=== PATIENT | male | born 1985 | race Caucasian/White ===

== ENCOUNTER 2017-08-06 17:48 | Inpatient (IN) | payer OTHER ==
[~2017-08-06] VITALS: Ht 193 cm; Wt 145.4 kg
[2017-08-06] MEDS ORDERED: normal saline 1000ML IV soln IV ONE (18:05)
[2017-08-06 18:43] LABS: BASOPHILS % (AUTO) 0.3 % (0-1); EOSINOPHILS # (AUTO) 0.2 X10'3 (0-0.9); EOSINOPHILS % (AUTO) 1.3 % (0-6); HEMATOCRIT 39.9 % (42.0-52.0); HEMOGLOBIN 13.4 g/dl (14.0-17.9); LYMPHOCYTES # (AUTO) 1.8 X10'3 (1.1-4.8); LYMPHOCYTES % (AUTO) 15.5 % (21-51); MEAN CORPUSCULAR HGB CONC 33.6 % (33.0-36.5); MEAN CORPUSCULAR VOLUME 83.5 FL (78-98); MEAN PLATELET VOLUME 9.5 FL (7.4-10.4); MONOCYTES # (AUTO) 1.5 X10'3 (0-0.9); MONOCYTES % (AUTO) 12.8 % (2-12); NEUTROPHILS # (AUTO) 7.9 X10'3 (1.8-7.7); NEUTROPHILS % (AUTO) 70.1 % (42-75); PLATELET COUNT 213 X10'3 (140-440); RED BLOOD COUNT 4.77 X10'6 (4.70-6.10); RED CELL DISTRIBUTION WIDTH 13.4 % (11.5-14.5); WHITE BLOOD COUNT 11.3 X10'3 (4.5-11.0)
[2017-08-06 18:57] LABS: ALANINE AMINOTRANSFERASE 30 U/L (12-78); ALBUMIN 3.4 G/DL (3.4-5.0); ALBUMIN/GLOBULIN RATIO 0.8 (1.1-1.5); ALKALINE PHOSPHATASE 72 IU/L (46-116); ANION GAP 7 (8-16); ASPARTATE AMINO TRANSFERASE 15 U/L (10-37); BILIRUBIN,TOTAL 0.4 MG/DL (0.1-1.0); BLOOD UREA NITROGEN 16 MG/DL (7-18); BUN/CREATININE RATIO 15.8 (5.4-32.0); CALCIUM 8.6 MG/DL (8.5-10.1); CHLORIDE 101 MMOL/L (99-107); CREATININE 1.01 MG/DL (0.60-1.10); GLUCOSE 131 MG/DL (70-104); POTASSIUM 3.5 MMOL/L (3.5-5.1); SODIUM 137 MMOL/L (135-145); TOTAL PROTEIN 7.6 G/DL (6.4-8.2); eGFR 85 ML/MIN
[2017-08-06] MEDS ORDERED: vancomycin inj 1,000 MG in normal saline 250ml IV soln 250 ML IV STA (19:06)
[2017-08-06] MEDS ORDERED: vancomycin/NS 1 GM ADD-VANTAGE 250 ML IV STA (19:10)
[2017-08-06] MEDS ORDERED: iohexol 300mg/ml 100ml inj. ONE (19:11)
[2017-08-06] MEDS ORDERED: acetaminophen 325mg tablet PO ONE (19:50)
[2017-08-06] MEDS ORDERED: CEPH-571 PO (20:21)
[2017-08-06] MEDS ORDERED: DOXY100C43 PO (20:21)
[2017-08-06] MEDS ORDERED: HYDR-565 PO (20:22)
[2017-08-06] MEDS ORDERED: CefTRIAXone 2gm/NS 100ml IVPB 100 ML IV ONE (21:05)
[2017-08-06] MEDS ORDERED: mag hydrox/Alum hydrox/simeth 30ml oral suspension PO PRN (22:40)
[2017-08-06] MEDS ORDERED: ondansetron/PF 4mg/2ml inj IV PRN (22:40)
[2017-08-06] MEDS ORDERED: acetaminophen 325mg tablet PO PRN (22:40)
[2017-08-06] MEDS ORDERED: magnesium hydroxide 30ml (MOM) UD suspension PO PRN (22:40)
[2017-08-06] MEDS: vancomycin/NS 1 GM ADD-VANTAGE 250 ML IV ONE (23:15)
[2017-08-06 23:30] VITALS: BP 126/74
[2017-08-06] MEDS: normal saline 1000ml 1,000 ML IV SCH (23:30)
[2017-08-07] MEDS: acetaminophen 325mg tablet PO PRN ×2 (00:43→16:45)
[2017-08-07] MEDS: vancomycin/NS 1 GM ADD-VANTAGE 250 ML IV ONE (01:05)
[2017-08-07 06:00] VITALS: BP 134/77
[2017-08-07 06:04] LABS: BASOPHILS % (AUTO) 0.2 % (0-1); EOSINOPHILS # (AUTO) 0.2 X10'3 (0-0.9); EOSINOPHILS % (AUTO) 1.5 % (0-6); HEMATOCRIT 35.3 % (42.0-52.0); LYMPHOCYTES # (AUTO) 2.3 X10'3 (1.1-4.8); LYMPHOCYTES % (AUTO) 21.4 % (21-51); MEAN CORPUSCULAR HEMOGLOBIN 28.1 PG (27.0-31.0); MEAN CORPUSCULAR VOLUME 82.8 FL (78-98); MEAN PLATELET VOLUME 9.4 FL (7.4-10.4); MONOCYTES # (AUTO) 1.5 X10'3 (0-0.9); NEUTROPHILS # (AUTO) 6.8 X10'3 (1.8-7.7); NEUTROPHILS % (AUTO) 62.9 % (42-75); PLATELET COUNT 195 X10'3 (140-440); RED BLOOD COUNT 4.26 X10'6 (4.70-6.10); RED CELL DISTRIBUTION WIDTH 13.7 % (11.5-14.5); WHITE BLOOD COUNT 10.9 X10'3 (4.5-11.0)
[2017-08-07 06:24] LABS: ALBUMIN 2.7 G/DL (3.4-5.0); ANION GAP 6 (8-16); BLOOD UREA NITROGEN 11 MG/DL (7-18); BUN/CREATININE RATIO 12.6 (5.4-32.0); CALCIUM 8.3 MG/DL (8.5-10.1); CHLORIDE 106 MMOL/L (99-107); CREATININE 0.87 MG/DL (0.60-1.10); GLUCOSE 105 MG/DL (70-104); POTASSIUM 3.6 MMOL/L (3.5-5.1); SODIUM 138 MMOL/L (135-145); TOTAL CARBON DIOXIDE 25.8 MMOL/L (24-32); eGFR > 90 ML/MIN
[2017-08-07] MEDS ORDERED: vancomycin inj 1,250 MG in normal saline 250ml IV soln 250 ML IV SCH (08:00)
[2017-08-07] MEDS: normal saline 1000ml 1,000 ML IV SCH ×2 (08:38→18:38)
[2017-08-07 10:00] VITALS: BP 138/87
[2017-08-07] MEDS ORDERED: NO HOME MEDS (10:42)
[2017-08-07] MEDS: HYDROcodone/acetaminophen 10/325mg tab PO PRN (21:00)
[2017-08-07] MEDS: CefTRIAXone 2gm/D5W 50ml ADVTG 100 ML IV SCH (21:35)
[2017-08-07 22:03] VITALS: BP 128/77
[2017-08-07 22:07] VITALS: BP 140/78
[2017-08-08] MEDS: normal saline 1000ml 1,000 ML IV SCH ×2 (00:30→17:45)
[2017-08-08 06:00] VITALS: BP 145/83
[2017-08-08] MEDS: HYDROcodone/acetaminophen 10/325mg tab PO PRN ×4 (08:08→21:58)
[2017-08-08] MEDS: LACTOBACILLUS RHAMNOSUS GG 15 billion unit sprinkle caps PO SCH (08:09)
[2017-08-08 09:23] LABS: BASOPHILS % (AUTO) 0.2 % (0-1); EOSINOPHILS # (AUTO) 0.3 X10'3 (0-0.9); EOSINOPHILS % (AUTO) 2.2 % (0-6); HEMATOCRIT 36.2 % (42.0-52.0); HEMOGLOBIN 12.2 g/dl (14.0-17.9); LYMPHOCYTES # (AUTO) 2.1 X10'3 (1.1-4.8); LYMPHOCYTES % (AUTO) 17.4 % (21-51); MEAN CORPUSCULAR HGB CONC 33.7 % (33.0-36.5); MEAN CORPUSCULAR VOLUME 83.3 FL (78-98); MEAN PLATELET VOLUME 8.6 FL (7.4-10.4); MONOCYTES % (AUTO) 8.3 % (2-12); NEUTROPHILS # (AUTO) 8.5 X10'3 (1.8-7.7); NEUTROPHILS % (AUTO) 71.9 % (42-75); PLATELET COUNT 217 X10'3 (140-440); RED BLOOD COUNT 4.34 X10'6 (4.70-6.10); RED CELL DISTRIBUTION WIDTH 13.3 % (11.5-14.5); WHITE BLOOD COUNT 11.8 X10'3 (4.5-11.0)
[2017-08-08] MEDS ORDERED: VANCOMYCIN LEVEL IV NR (09:30)
[2017-08-08 09:36] LABS: ALANINE AMINOTRANSFERASE 29 U/L (12-78); ALBUMIN 2.8 G/DL (3.4-5.0); ALBUMIN/GLOBULIN RATIO 0.7 (1.1-1.5); ALKALINE PHOSPHATASE 66 IU/L (46-116); ANION GAP 6 (8-16); ASPARTATE AMINO TRANSFERASE 15 U/L (10-37); BILIRUBIN,TOTAL 0.6 MG/DL (0.1-1.0); BLOOD UREA NITROGEN 8 MG/DL (7-18); BUN/CREATININE RATIO 10.3 (5.4-32.0); CALCIUM 8.5 MG/DL (8.5-10.1); CHLORIDE 105 MMOL/L (99-107); CREATININE 0.78 MG/DL (0.60-1.10); GLUCOSE 107 MG/DL (70-104); POTASSIUM 3.7 MMOL/L (3.5-5.1); SODIUM 137 MMOL/L (135-145); TOTAL CARBON DIOXIDE 25.7 MMOL/L (24-32); TOTAL PROTEIN 6.8 G/DL (6.4-8.2); eGFR > 90 ML/MIN
[2017-08-08 09:38] LABS: VANCOMYCIN,TROUGH 11.3 UG/ML (6.0-14.0)
[2017-08-08 10:00] VITALS: BP 134/72
[2017-08-08 11:17] LABS: C-REACTIVE PROTEIN 12.92 MG/DL (0.0-0.5)
[2017-08-08] MEDS: vancomycin inj 1,750 MG in normal saline 500ml IV soln 500 ML IV SCH ×2 (15:23→21:06)
[2017-08-08 18:30] VITALS: BP 142/92
[2017-08-08] MEDS: CefTRIAXone 2gm/D5W 50ml ADVTG 100 ML IV SCH (20:19)
[2017-08-08 22:00] VITALS: BP 138/72
[2017-08-09] MEDS: normal saline 1000ml 1,000 ML IV SCH ×3 (00:38→20:38)
[2017-08-09] MEDS: HYDROcodone/acetaminophen 10/325mg tab PO PRN ×5 (01:55→23:47)
[2017-08-09] MEDS: vancomycin inj 1,750 MG in normal saline 500ml IV soln 500 ML IV SCH (05:06)
[2017-08-09 06:00] VITALS: BP 128/85
[2017-08-09 06:33] LABS: BASOPHILS % (AUTO) 0.4 % (0-1); EOSINOPHILS # (AUTO) 0.3 X10'3 (0-0.9); EOSINOPHILS % (AUTO) 2.8 % (0-6); HEMATOCRIT 36.1 % (42.0-52.0); HEMOGLOBIN 12.1 g/dl (14.0-17.9); LYMPHOCYTES # (AUTO) 2.2 X10'3 (1.1-4.8); LYMPHOCYTES % (AUTO) 19.8 % (21-51); MEAN CORPUSCULAR HGB CONC 33.4 % (33.0-36.5); MEAN CORPUSCULAR VOLUME 83.8 FL (78-98); MEAN PLATELET VOLUME 8.7 FL (7.4-10.4); MONOCYTES # (AUTO) 0.7 X10'3 (0-0.9); MONOCYTES % (AUTO) 6.5 % (2-12); NEUTROPHILS # (AUTO) 7.9 X10'3 (1.8-7.7); NEUTROPHILS % (AUTO) 70.5 % (42-75); PLATELET COUNT 235 X10'3 (140-440); RED BLOOD COUNT 4.31 X10'6 (4.70-6.10); RED CELL DISTRIBUTION WIDTH 13.4 % (11.5-14.5); WHITE BLOOD COUNT 11.2 X10'3 (4.5-11.0)
[2017-08-09 06:54] LABS: ALBUMIN 2.7 G/DL (3.4-5.0); ANION GAP 6 (8-16); BLOOD UREA NITROGEN 9 MG/DL (7-18); BUN/CREATININE RATIO 11.3 (5.4-32.0); C-REACTIVE PROTEIN 10.42 MG/DL (0.0-0.5); CALCIUM 8.5 MG/DL (8.5-10.1); CHLORIDE 104 MMOL/L (99-107); GLUCOSE 106 MG/DL (70-104); SODIUM 137 MMOL/L (135-145); TOTAL CARBON DIOXIDE 26.9 MMOL/L (24-32); eGFR > 90 ML/MIN
[2017-08-09] MEDS: LACTOBACILLUS RHAMNOSUS GG 15 billion unit sprinkle caps PO SCH (08:57)
[2017-08-09 10:00] VITALS: BP 135/78
[2017-08-09] MEDS ORDERED: VANCOMYCIN LEVEL IV ONE (12:30)
[2017-08-09] MEDS: vancomycin inj 2,000 MG in normal saline 500ml IV soln 500 ML IV SCH ×2 (15:23→23:46)
[2017-08-09 18:30] VITALS: BP 133/89
[2017-08-09] MEDS: CefTRIAXone 2gm/D5W 50ml ADVTG 100 ML IV SCH (21:19)
[2017-08-10 05:00] VITALS: BP 120/71
[2017-08-10] MEDS: HYDROcodone/acetaminophen 10/325mg tab PO PRN ×5 (05:32→21:21)
[2017-08-10 06:00] LABS: BASOPHILS % (AUTO) 0.4 % (0-1); EOSINOPHILS # (AUTO) 0.3 X10'3 (0-0.9); EOSINOPHILS % (AUTO) 2.9 % (0-6); HEMATOCRIT 39.3 % (42.0-52.0); HEMOGLOBIN 13.1 g/dl (14.0-17.9); LYMPHOCYTES # (AUTO) 2.4 X10'3 (1.1-4.8); LYMPHOCYTES % (AUTO) 23.8 % (21-51); MEAN CORPUSCULAR HGB CONC 33.3 % (33.0-36.5); MEAN CORPUSCULAR VOLUME 83.9 FL (78-98); MEAN PLATELET VOLUME 8.5 FL (7.4-10.4); MONOCYTES # (AUTO) 0.6 X10'3 (0-0.9); MONOCYTES % (AUTO) 6.3 % (2-12); NEUTROPHILS # (AUTO) 6.6 X10'3 (1.8-7.7); NEUTROPHILS % (AUTO) 66.6 % (42-75); PLATELET COUNT 299 X10'3 (140-440); RED BLOOD COUNT 4.68 X10'6 (4.70-6.10); RED CELL DISTRIBUTION WIDTH 13.4 % (11.5-14.5)
[2017-08-10 06:35] LABS: ALBUMIN 2.8 G/DL (3.4-5.0); ANION GAP 7 (8-16); BLOOD UREA NITROGEN 11 MG/DL (7-18); BUN/CREATININE RATIO 12.2 (5.4-32.0); C-REACTIVE PROTEIN 8.03 MG/DL (0.0-0.5); CALCIUM 8.8 MG/DL (8.5-10.1); CHLORIDE 105 MMOL/L (99-107); GLUCOSE 125 MG/DL (70-104); SODIUM 140 MMOL/L (135-145); TOTAL CARBON DIOXIDE 28.5 MMOL/L (24-32); eGFR > 90 ML/MIN
[2017-08-10] MEDS: vancomycin inj 2,000 MG in normal saline 500ml IV soln 500 ML IV SCH ×3 (07:34→22:32)
[2017-08-10] MEDS: normal saline 1000ml 1,000 ML IV SCH ×2 (07:35→16:38)
[2017-08-10] MEDS: LACTOBACILLUS RHAMNOSUS GG 15 billion unit sprinkle caps PO SCH (07:35)
[2017-08-10 10:30] VITALS: BP 136/84
[2017-08-10] MEDS ORDERED: VANCOMYCIN LEVEL IV ONE (14:30)
[2017-08-10 18:39] VITALS: BP 138/70
[2017-08-10] MEDS ORDERED: CefTRIAXone 2gm/NS 100ml IVPB 100 ML IV ONE (21:14)
[2017-08-10] MEDS ORDERED: CefTRIAXone 2gm/NS 100ml IVPB 100 ML IV SCH (21:19)
[2017-08-10 22:00] VITALS: BP 128/71
[2017-08-11 05:00] VITALS: BP 150/74
[2017-08-11] MEDS: normal saline 1000ml 1,000 ML IV SCH ×2 (06:43→07:05)
[2017-08-11] MEDS: vancomycin inj 2,000 MG in normal saline 500ml IV soln 500 ML IV SCH ×3 (06:59→23:02)
[2017-08-11] MEDS: HYDROcodone/acetaminophen 10/325mg tab PO PRN ×3 (07:00→15:10)
[2017-08-11] MEDS: LACTOBACILLUS RHAMNOSUS GG 15 billion unit sprinkle caps PO SCH (07:00)
[2017-08-11 07:30] LABS: ALBUMIN 2.7 G/DL (3.4-5.0); ANION GAP 7 (8-16); BLOOD UREA NITROGEN 11 MG/DL (7-18); BUN/CREATININE RATIO 12.2 (5.4-32.0); CALCIUM 8.4 MG/DL (8.5-10.1); CHLORIDE 107 MMOL/L (99-107); GLUCOSE 104 MG/DL (70-104); SODIUM 144 MMOL/L (135-145); TOTAL CARBON DIOXIDE 30.1 MMOL/L (24-32); eGFR > 90 ML/MIN
[2017-08-11 07:36] LABS: BASOPHILS # (AUTO) 0.1 X10'3 (0-0.2); BASOPHILS % (AUTO) 0.6 % (0-1); EOSINOPHILS # (AUTO) 0.3 X10'3 (0-0.9); EOSINOPHILS % (AUTO) 3.1 % (0-6); HEMATOCRIT 35.7 % (42.0-52.0); HEMOGLOBIN 12.7 g/dl (14.0-17.9); LYMPHOCYTES % (AUTO) 23.5 % (21-51); MEAN CORPUSCULAR HEMOGLOBIN 29.6 PG (27.0-31.0); MEAN CORPUSCULAR HGB CONC 35.5 % (33.0-36.5); MEAN CORPUSCULAR VOLUME 83.6 FL (78-98); MEAN PLATELET VOLUME 9.3 FL (7.4-10.4); MONOCYTES # (AUTO) 0.6 X10'3 (0-0.9); MONOCYTES % (AUTO) 6.7 % (2-12); NEUTROPHILS # (AUTO) 5.6 X10'3 (1.8-7.7); NEUTROPHILS % (AUTO) 66.1 % (42-75); PLATELET COUNT 317 X10'3 (140-440); RED BLOOD COUNT 4.28 X10'6 (4.70-6.10); RED CELL DISTRIBUTION WIDTH 12.4 % (11.5-14.5); WHITE BLOOD COUNT 8.6 X10'3 (4.5-11.0)
[2017-08-11] MEDS ORDERED: LIDOcaine 1% (10mg/ml) 2ml vial SQ ONE (09:25)
[2017-08-11 18:00] VITALS: BP 137/79
[2017-08-11] MEDS: acetaminophen 325mg tablet PO PRN (18:59)
[2017-08-11 22:00] VITALS: BP 132/71
[2017-08-12 06:00] VITALS: BP 132/64
[2017-08-12] MEDS ORDERED: LIDOcaine 1% (10mg/ml) 2ml vial SQ PRN (06:20)
[2017-08-12] MEDS: LACTOBACILLUS RHAMNOSUS GG 15 billion unit sprinkle caps PO SCH (08:03)
[2017-08-12] MEDS: acetaminophen 325mg tablet PO PRN (08:03)
[2017-08-12] MEDS: vancomycin inj 2,000 MG in normal saline 500ml IV soln 500 ML IV SCH (08:04)
[2017-08-12] MEDS ORDERED: LEVO500T2 PO (12:57)
== END 2017-08-12 13:55 | disposition home or self-care (01) | DRG 872 ==
LOC: ER 17:50 → ED HOLD 22:38 → ORTHO 4S 23:40
PROVIDERS: ADMIT Internal Medicine; ATTEND Family Medicine
PROC: BQ2R1ZZ Computerized Tomography (CT Scan) of Right Lower Extremity using Low Osmolar Contrast (ICD-10-PCS; principal; 2017-08-06)
PROC: 0H9KXZX Drainage of Right Lower Leg Skin, External Approach, Diagnostic (ICD-10-PCS; 2017-08-10)
DX: A41.9 Sepsis, unspecified organism (principal); L02.415 Cutaneous abscess of right lower limb; L03.115 Cellulitis of right lower limb; B95.4 Other streptococcus as the cause of diseases classified elsewhere; D64.9 Anemia, unspecified; R00.0 Tachycardia, unspecified; R23.4 Changes in skin texture; Z79.899 Other long term (current) drug therapy
CPT/HCPCS: 36415; 73701; 80048; 80053; 80202; 83605; 85025; 85651; 86140; 87040; 87070; 87077; 87186; 96361; 96365; 96366; 96375; 96376; 99285; A6222; A6266; A6446; A6449; J0696; J2270; J3370; J3490; J7030; Q9967